=== PATIENT | male | born 1960 | race African-American/Black ===

== ENCOUNTER 2021-08-22 22:06 | Emergency (ER) | payer SELFPAY ==
[~2021-08-22] VITALS: Ht 190.5 cm; Wt 97.0 kg
[2021-08-22 22:35] VITALS: BP 146/86
== END 2021-08-23 00:01 | disposition left against medical advice (07) ==
LOC: ER 22:06
DX: Z53.21 Procedure and treatment not carried out due to patient leaving prior to being seen by health care provider (principal)

== ENCOUNTER 2021-10-28 14:46 | Inpatient (IN) | payer MEDICAID ==
[~2021-10-28] VITALS: Ht 190.5 cm; Wt 104.0 kg
[2021-10-28] MEDS ORDERED: ONDANSETRON HCL 4MG/2ML INJ IV STA ×2 (16:23→18:18)
[2021-10-28] MEDS ORDERED: MORPHINE SULFATE 4 MG/ML CPJ (NOT FOR IM USE) IV STA ×2 (16:23→18:18)
[2021-10-28] MEDS ORDERED: VANCOMYCIN 1 G PREMIX 200 ML IV ONE (16:30)
[2021-10-28] MEDS ORDERED: PIPERACILLIN/TAZ 3.375G PREMIX 50 ML IV ONE (16:30)
[2021-10-28] MEDS ORDERED: TETANUS, DIPHTHERIA, PERTUSSIS VAC/PF 0.5ML (>10YR OLD) IM ONE (16:30)
[2021-10-28] MEDS ORDERED: SODIUM CHLORIDE 0.9% 1000ML BAG (SEPSIS BOLUS) IV ONE (16:30)
[2021-10-28 16:55] LABS: BASOPHILS % 0.3 % (0.0-2.0); HEMATOCRIT. 34.7 % (42.0-52.0); HEMOGLOBIN. 11.2 g/dL (14.0-18.0); MEAN CORPUSCULAR HEMOGLOBIN 27.3 pg (28.0-32.0); MEAN CORPUSCULAR VOLUME 84.6 fL (80.0-94.0); MEAN PLATELET VOLUME 10.4 fl (7.4-10.4); NEUTROPHILS % 65.7 % (40.0-76.0); PLATELET 280 x1000/uL (130-400); RED BLOOD CELL COUNT 4.11 mill/uL (4.7-6.1)
[2021-10-28 16:58] LABS: CHLORIDE 100 mEq/L (98-107)
[2021-10-28 17:01] LABS: PROTHROMBIN TIME 10.8 sec (9.6-11.0)
[2021-10-28 17:09] LABS: CLARITY URINE CLEAR (CLEAR); COLOR URINE YELLOW (YELLOW); KETONES URINE TRACE (NEGATIVE); LEUKOCYTE ESTERASE URINE NEGATIVE (NEGATIVE); NITRITE URINE NEGATIVE (NEGATIVE); OCCULT BLOOD URINE NEGATIVE (NEGATIVE); PH URINE 6.5 (4.5-8.0); PROTEIN URINE 2+ (NEGATIVE); SPECIFIC GRAVITY URINE 1.034 (1.005-1.030)
[2021-10-28] MEDS ORDERED: LIDOCAINE HCL/EPINEPHRINE 1%-EPI 1:100,000 20 ML VIAL INFIL ONE (18:00)
[2021-10-28 22:45] VITALS: BP 112/60
== END 2021-10-28 23:20 | disposition left against medical advice (07) | DRG 383 ==
LOC: ER 14:46 → MICUSO 18:26 → EDBEDREQTM 18:42 → EDBEDREQ 18:42
PROVIDERS: ADMIT Internal Medicine; ATTEND Internal Medicine
PROC: 0H9JXZZ Drainage of Left Upper Leg Skin, External Approach (ICD-10-PCS; principal; 2021-10-28)
DX: L02.416 Cutaneous abscess of left lower limb (principal); R65.10 Systemic inflammatory response syndrome (SIRS) of non-infectious origin without acute organ dysfunction; I10 Essential (primary) hypertension; Z53.29 Procedure and treatment not carried out because of patient's decision for other reasons; Z82.49 Family history of ischemic heart disease and other diseases of the circulatory system
CPT/HCPCS: 36415; 80053; 81003; 83605; 84145; 85025; 87070; 87077; 87186; 90715; 93005; 99285; J2270; J2405; J2543; J3370; J3490; J7030

== ENCOUNTER 2021-11-21 01:44 | Emergency (ER) | payer MEDICAID ==
[~2021-11-21] VITALS: Ht 188 cm; Wt 94.0 kg
[2021-11-21] MEDS ORDERED: EPINEPHRINE 1:1000 1 MG/ML AMP IM ONE (02:00)
[2021-11-21] MEDS ORDERED: DEXAMETHASONE 10 MG/ML VIAL IV ONE (02:00)
[2021-11-21] MEDS ORDERED: DIPHENHYDRAMINE 50MG/ML VIAL IV ONE (02:00)
[2021-11-21] MEDS ORDERED: FAMOTIDINE 20MG/2ML VIAL IV ONE (02:00)
[2021-11-21] MEDS ORDERED: GLUCAGON,HUMAN RECOMBINANT 1MG/VIAL IV ONE ×2 (02:15→03:30)
[2021-11-21 02:43] LABS: CHLORIDE 105 mEq/L (98-107)
[2021-11-21] MEDS ORDERED: POTASSIUM CHLORIDE INJ 40 MEQ in DEXT 5% WATER 250 ML IV ONE (04:15)
[2021-11-21] MEDS ORDERED: PIPERACILLIN/TAZOBACTAM 3.375GM/50ML PREMIX IV ONE (04:15)
[2021-11-21] MEDS ORDERED: VANCOMYCIN 1 G PREMIX 200 ML IV NR (04:30)
[2021-11-21] MEDS ORDERED: SODIUM CHLORIDE 0.9% 1,000 ML IV NR (04:30)
[2021-11-21] MEDS ORDERED: KCL 20MEQ/100ML PREMIX 100 ML IV NR ×2 (04:30→06:30)
[2021-11-21] MEDS ORDERED: EPINEPHRINE 1:1000 1 MG/ML AMP IM NR (04:30)
[2021-11-21 04:34] LABS: HEMATOCRIT 34.7 % (42.0-52.0); HEMOGLOBIN 11.2 g/dL (14.0-18.0); MEAN CORPUSCULAR HEMOGLOBIN 27.5 pg (28.0-32.0); MEAN CORPUSCULAR VOLUME 85.2 fL (80.0-94.0); PLATELET 206 x1000/uL (130-400); RED BLOOD CELL COUNT 4.07 mill/uL (4.7-6.1); RED CELL DISTRIBUTION WIDTH 16.3 % (11.6-14.6)
[2021-11-21] MEDS ORDERED: PIPERACILLIN/TAZ 3.375G PREMIX 50 ML IV NR (06:00)
[2021-11-21 10:02] VITALS: BP 128/76
== END 2021-11-21 10:20 | disposition left against medical advice (07) ==
LOC: ER 01:44 → CANBEDREQ 11-22 10:03
DX: T78.3XXA Angioneurotic edema, initial encounter (principal); J39.0 Retropharyngeal and parapharyngeal abscess; I10 Essential (primary) hypertension; Z20.822 Contact with and (suspected) exposure to COVID-19
CPT/HCPCS: 36415; 70490; 80053; 85027; 86850; 86900; 86901; 87040; 87426; 96365; 96367; 96372; 96375; 96376; 99285; J1100; J1200; J1610; J2543; J3370; J3480; J3490